=== PATIENT | male | born 1985 | race Two or more races ===

== ENCOUNTER 2020-06-20 03:03 | Emergency (ER) | payer MEDICAID ==
[~2020-06-20] VITALS: Ht 177.8 cm; Wt 100.0 kg
[2020-06-20 03:06] VITALS: BP 93/46
--- NOTE | 2020-06-20 03:20 | NUR ---
L2K BY [employer] AFTER PT CALLED 911 FOR HEARING VOICES. UPON [employer] ARRIVAL PT WAS FOUND OUTSIDE IN UNDERWEAR, NO SHOES, REPONDING TO VOICES AND BANGING HEAD UP AGAINST WALL. SMALL CONTUSION TO TOP OF HEAD NO BLEEDING/ICE APPLIED. DENIES LOC. PT STATES HE IS BIPOLAR BUT DOESN'T TAKE ANY MEDS. HE DENIES SI/HI UPON ARRIVAL. UNDRESSED, BELONGINGS TO STORAGE, PT PROVIDING URINE AND BLOOD SAMPLE. HE IS COOPERATIVE AND STATES "I JUST WANT TO SLEEP".
[2020-06-20] MEDS ORDERED: LORazepam 1MG TABLET PO ONE (03:30)
[2020-06-20 03:38] LABS: BASOPHILS % (AUTO) 1 % (0-1); EOSINOPHILS % (AUTO) 3 % (1-7); LYMPHOCYTES % (AUTO) 30 % (22-44); MEAN CORPUSCULAR HEMOGLOBIN 28.3 pg (27.5-34.5); MEAN CORPUSCULAR HGB CONC 33.5 g/dL (33.2-36.2); MEAN PLATELET VOLUME 8.2 fL (7.4-10.4); MONOCYTES % (AUTO) 7 % (2-9); NEUTROPHILS % (AUTO) 59 % (42-75); PLATELET COUNT 271 x10^3/uL (130-400); RED BLOOD COUNT 5.46 x10^6/uL (4.38-5.82); RED CELL DISTRIBUTION WIDTH 13.4 % (9.4-14.8)
[2020-06-20 03:43] LABS: MD NO
[2020-06-20 03:49] LABS: ALBUMIN 3.7 g/dL (3.4-5.0); ANION GAP 7 mmol/L (5-15); CALCIUM 8.4 mg/dL (8.5-10.1); CHLORIDE 112 mmol/L (98-107)
--- NOTE | 2020-06-20 03:51 | NUR ---
PT RESTING, EYES CLOSED, RR EQUAL AND UNLABORED. WILL CONTINUE TO MONITOR.
[2020-06-20 03:53] LABS: AMPHETAMINE SCREEN, URINE Positive (Negative); BARBITURATE SCREEN, URINE Negative (Negative); BENZODIAZEPINE SCREEN, URINE Negative (Negative); CANNABINOID SCREEN, URINE Negative (Negative); COCAINE SCREEN, URINE Negative (Negative); METHADONE SCREEN, URINE Negative (Negative); OPIATE SCREEN, URINE Negative (Negative)
[2020-06-20 03:53] LABS: ALANINE AMINOTRANSFERASE 33 U/L (12-78); ALKALINE PHOSPHATASE 80 U/L (45-117); BILIRUBIN,TOTAL 0.4 mg/dL (0.2-1.0); CREATININE 0.95 mg/dL (0.7-1.3); SALICYLATE LEVEL < 1.7 mg/dL (2.8-20.0); TOTAL PROTEIN 7.2 g/dL (6.4-8.2)
[2020-06-20] MEDS ORDERED: PLEASE ENTER ALLERGIES MC SCH (04:00)
--- NOTE | 2020-06-20 04:01 | NUR ---
PT SLEEPING, RR EQUAL AND UNLABORED. TELEPSYCH MOVED INTO ROOM.
[2020-06-20] MEDS ORDERED: LORazepam 1MG TABLET ONE (04:04)
--- NOTE | 2020-06-20 04:07 | NUR ---
PT MOVED TO SECURE ROOM, TELEPSYCH MOVED ALSO. MEDICATED WITH ATIVAN FOR ANXIETY. SITTER OUTSIDE ROOM IN LINE OF SITE. WILL CONTINUE TO MONITOR.
--- NOTE | 2020-06-20 04:18 | NUR ---
BELONGINGS MOVED TO STORAGE BIN 40.
--- NOTE | 2020-06-20 04:25 | NUR ---
TELE PSYCH MD DOING INTERVIEW. SITTER REMAINS IN LINE OF SITE. WILL CONTINUE TO MONITOR.
--- NOTE | 2020-06-20 04:40 | NUR ---
REPORT TO ANGEL MARQUEZ.
--- NOTE | 2020-06-20 04:44 | NUR ---
BS REPORT FROM LISA ORTIZ. PT CARE TRANSFERRED AT THIS TIME. PT NAD, RESTING ON GURNEY, EYES CLOSED, SITTER IN LINE OF SIGHT, EVEN AND UNLABORED RESPIRATIONS. WCTM. L2K
--- NOTE | 2020-06-20 05:44 | NUR ---
TP RN: PT SELF PAY. PACKET FAXED TO [facility]
--- NOTE | 2020-06-20 06:29 | NUR ---
pt resting on gurney, NAD, eyes closed, even and unlabored respirations, sitter in line of sight, SI precautions in place. WCTM.
--- NOTE | 2020-06-20 06:51 | NUR ---
REPORT FROM [facility]
--- NOTE | 2020-06-20 09:22 | NUR ---
PT RESTING, PROVIDED MEAL TRAY. SITTER PRESENT
--- NOTE | 2020-06-20 10:37 | NUR ---
PT RESTING, SITTER PRESENT
--- NOTE | 2020-06-20 11:30 | NUR ---
speeder machine operator at bedside
--- NOTE | 2020-06-20 12:37 | NUR ---
Given meal tray for lunch
--- NOTE | 2020-06-20 12:49 | NUR ---
Patient/Caregiver given discharge instructions and they have confirmed that they understand the instructions. Patient ambulatory with steady gait. All belongings w pt
== END 2020-06-20 12:51 | disposition home or self-care (01) ==
LOC: ED 05:01
DX: F30.2 Manic episode, severe with psychotic symptoms (principal); R25.9 Unspecified abnormal involuntary movements; F17.200 Nicotine dependence, unspecified, uncomplicated
CPT/HCPCS: 36415; 80053; 80307; 85025; 99285